=== PATIENT | male | born 1965 | race Caucasian/White ===

== ENCOUNTER → 2019-04-07 | Outpatient (CLI) | payer OTHER | LOC: RAD 09:55 | PROVIDERS: ATTEND Urology | DX: N20.1 Calculus of ureter (principal) ==

== ENCOUNTER → 2019-04-21 | Outpatient (CLI) | payer OTHER ==
[~2019-04-21] MED LIST: CLARITIN-D 241 EACH PO; CRESTOR10 MG PO; PEPCID20 MG PO
--- NOTE | 2019-04-21 12:04 | Diagnostic Imaging Report ---
CT of the abdomen and pelvis, without contrast. History: Renal colic, ureteral stone. Comparison: None available. Technique: Multidetector CT scanning of the abdomen and pelvis was performed from the level of the lung bases to the inferior pubic rami without the use of contrast material. Coronal and sagittal multiplanar reformations were obtained. RADIATION DOSE: Total DLP: 563.86 mGy*cm Dose modulation, iterative reconstruction, and/or weight based adjustment of the mA/kV was utilized to reduce the radiation dose to as low as reasonably achievable. FINDINGS: The visualized lungs are clear. The imaged portion of the heart demonstrates no significant abnormalities. The liver is normal in size and attenuation on this noncontrast enhanced examination. The gallbladder is unremarkable. There is no biliary ductal dilatation. The stomach, spleen, pancreas, and bilateral adrenal glands are unremarkable. The kidneys are normal in size and location. There is no evidence for nephrolithiasis. There is a 4-5 mm stone identified within the distal right ureter. There is no significant hydronephrosis or hydroureter present. The left ureter is normal course and caliber. The urinary bladder demonstrates no significant abnormalities. The prostate contains calcifications. The abdominal aorta is normal course and caliber with mild after cirrhotic calcifications. The IVC is normal in caliber. Please note evaluation the bowel is limited without the use of enteric contrast material. The visualized loops small large bowel demonstrate no evidence of obstruction or inflammation. The appendix is visualized and appears unremarkable. Scattered diverticula are noted within the sigmoid colon without evidence for acute diverticulitis. There is no ascites or intraperitoneal free air. No abnormally enlarged lymph nodes are identified within the abdomen or pelvis. There are small fat-containing bilateral inguinal hernias present. The osseous structures demonstrate no evidence for acute fracture or destructive process. The extraperitoneal soft tissues are unremarkable. IMPRESSION: 4-5 mm stone identified within the distal right ureter. No evidence for hydroureter or hydronephrosis. Signed by: Dr. Jose Samuels MD on 04/21/2019 12:02 PM
== END ==
LOC: CT 11:00
PROVIDERS: ATTEND Urology
DX: N13.2 Hydronephrosis with renal and ureteral calculous obstruction (principal)
CPT/HCPCS: 74176

== ENCOUNTER → 2019-04-23 | Day surgery (SDC) | payer OTHER ==
[2019-04-22 16:09] LABS: BASOPHILS % 0.5 % (0.0-1.0); EOSINOPHILS # (AUTO) 0.1 (0.0-0.4); EOSINOPHILS % 1.1 % (0.0-6.0); HEMATOCRIT 44.3 % (38.2-49.6); HEMOGLOBIN 14.5 g/dL (14.0-18.0); LYMPHOCYTES # (AUTO) 1.6 (1.0-3.2); LYMPHOCYTES % 24.1 % (18.0-39.1); MEAN CORPUSCULAR HEMOGLOBIN 30.5 pg (28-32); MEAN CORPUSCULAR HGB CONC 32.7 g/dL (31-35); MEAN CORPUSCULAR VOLUME 93.1 fL (81-99); MONOCYTES # (AUTO) 0.5 (0.2-0.8); MONOCYTES % 7.5 % (4.4-11.3); NEUTROPHILS # (AUTO) 4.3 (2.1-6.9); NEUTROPHILS % 66.6 % (38.7-80.0); PLATELET COUNT 231 x10e3/uL (140-360); RED BLOOD COUNT 4.76 x10e6/uL (4.3-5.7); RED CELL DISTRIBUTION WIDTH 12.5 % (11.7-14.4)
[2019-04-22 16:55] LABS: ALBUMIN 4.4 g/dL (3.5-5.0); ALBUMIN/GLOBULIN RATIO 1.5 (0.8-2.0); ANION GAP 11.1 mmol/L (8-16); CALCIUM 9.8 mg/dL (8.4-10.2); CREATININE, SERUM 1.24 mg/dL (0.72-1.25); POTASSIUM 4.1 mmol/L (3.5-5.1)
[~2019-04-23] MED LIST changes: +ACETAMINOPHEN 1000 MG/100 ML IV ONE; +B&O 60MG R/S 60 MG SUPP PR ONE; +CEFTRIAXONE SOD 1 GM/NS 50 ML 50 ML IV ONE; +DEXAMETHASONE SOD PHOS INJ 4 MG/ML VIAL ONE; +FENTANYL CITRATE/PF 100MCG/2 ML INJ ONE; +IOPAMIDOL 300MG/ML 50ML INFUS..BTL IV ONE; +IOPAMIDOL 610MG/1ML 300 MG/ML VIAL IV ONE; +KETOROLAC TROMETHAMINE 30 MG/ML VIAL ONE; +LIDOCAINE HCL 2% LOCAL INJ 5 ML SDV VIAL INJ ONE; +MIDAZOLAM HCL 2 MG/2 ML VIAL ONE; +ONDANSETRON HCL INJ 2MG/ML 2ML 2 MG/ML VIAL ONE; +PHENAZOPYRIDINE HCL 100 MG TAB PO ONE; +PROPOFOL IV EMULSION 10 MG/ML 20 ML VIAL ONE; +SEVOFLURANE INHAL SOLN 250 ML PEN BTL ONE
--- OUTSIDE RECORDS SUMMARY | 2019-04-23 05:33 | XMS REPORT ---
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 Allergies, Adverse Reactions, Alerts This patient has no known allergies or adverse reactions. Medications This patient has no known medications. Results Test Description Test Time Test Comments Text Results Atomic Results Result Comments CT ABDOMEN/PELVIS WO 2019-04-21 11:56:00 [place] [address] Patient Name: BABAR BOWEN MR #: [id number] : 1965 Age/Sex: 54/M Req #: [id number] Adm Physician: Ordered by: CAMILA LORENZO MD Report #: [id number] Location: CT Room/Bed: Procedure: [id number] CT/CT ABDOMEN/PELVIS WO Exam Date: 04/21/19 Exam Time: 1120 REPORT STATUS: Signed CT of the abdomen and pelvis, without contrast. History: Renal colic, ureteral stone. Comparison: None available. Technique: Multidetector CT scanning of the abdomen and pelvis was performed from the level of the lung bases to the inferior pubic rami without the use of contrast material. Coronal and sagittal multiplanar reformations were obtained. RADIATION DOSE: Total DLP: 563.86 mGy*cm Dose modulation, iterative reconstruction, and/or weight based adjustment of the mA/kV was utilized to reduce the radiation dose to as low as reasonably achievable. FINDINGS: The visualized lungs are clear. The imaged portion of the heart demonstrates no significant abnormalities. The liver is normal in size and attenuation on this noncontrast enhanced examination. The gallbladder is unremarkable. There is no biliary ductal dilatation. The stomach, spleen, pancreas, and bilateral adrenal glands are unremarkable. The kidneys are normal in size and location. There is no evidence for nephrolithiasis. There is a 4-5 mm stone identified within the distal right ureter. There is no significant hydronephrosis or hydroureter present. The left ureter is normal course and caliber. The urinary bladder demonstrates no significant abnormalities. The prostate contains calcifications. The abdominal aorta is normal course and caliber with mild after cirrhotic calcifications. The IVC is normal in caliber. Please note evaluation the bowel is limited without the use of enteric contrast material. The visualized loops small large bowel demonstrate no evidence of obstruction or inflammation . The appendix is visualized and appears unremarkable. Scattered diverticula are noted within the sigmoid colon without evidence for acute diverticulitis. There is no ascites or intraperitoneal free air. No abnormally enlarged lymph nodes are identified within the abdomen or pelvis. There are small fat- containing bilateral inguinal hernias present. The osseous structures demonstrate no evidence for acute fracture or destructive process. The extraperitoneal soft tissues are unremarkable. IMPRESSION: 4-5 mm stone identified within the distal right ureter. No evidence for hydroureter or hydronephrosis. Signed by: Dr. Jose Klein MD on 04/21/2019 12:02 PM Dictated By: JOSE KLEIN MD 1202 Transcribed By: CURRY on 04/21/19 1202 COPY TO: CAMILA LORENZO MD
[2019-04-23 09:00] VITALS: BP 132/79
--- NOTE | 2019-04-23 13:52 | Operative Report ---
DATE OF PROCEDURE: 04/23/2019 SURGEON: Kamlesh Tavera MD PREOPERATIVE DIAGNOSES: 1. Hydronephrosis. 2. Right ureterolithiasis. POSTOPERATIVE DIAGNOSES: 1. Hydronephrosis. 2. Right ureterolithiasis. 3. Wide caliber bulbar urethral stricture. 4. Distal right ureteral stricture. 5. Early benign prostatic hyperplasia .. OPERATIONS PERFORMED: 1. Cystourethroscopy with calibration and dilation of wide caliber bulbar urethral stricture (separate procedure performed for the diagnosis of stricture). 2. Cystourethroscopy with bilateral ureteral catheterization and retrograde ureteropyelography (separate procedure performed to evaluate the previously diagnosed hydronephrosis). 3. Interpretation of retrograde ureteropyelography. 4. Supervision of fluoroscopy, no radiologist present. 5. Right ureteroscopy with dilation of distal ureteral stricture (separate procedure performed for the diagnosis of stricture). 6. Right ureteroscopy with holmium laser lithotripsy, extraction of stone fragments and placement of right ureteral stent (separate procedure performed for the ureteral stone). 7. Radiological services for supervision and interpretation of ureteroscopy. ANESTHESIA: General. COMPLICATIONS: None. CLINICAL SUMMARY: Bobby Barry is a 54-year-old man without any previous urological history. The patient had severe right renal colic, presented to an outlying emergency room, where CT scanning revealed hydroureteronephrosis and a distal right ureteral stone. After several weeks of stone passage trial with failure, the patient has had mild persistent symptomatology. Followup CT revealed virtually no movement of the stone over several week. Therefore, the patient elected to proceed with surgery as planned. He is aware of the risks of bleeding, infection, injury to adjacent structures, the fact he will have a temporary indwelling ureteral stent that requires followup and removal. He understood all these risks and elected to proceed. OPERATIVE PROCEDURE IN DETAIL: Informed consent was verified. Bobby Barry was properly identified, taken to the operating room, and placed on the cystoscopy table in supine position. Anesthesia was uneventfully begun. The patient was then carefully and gently repositioned in dorsal lithotomy position with all pressure points well padded. His genitalia were prepared and draped in the usual sterile fashion. The 22.5-Ecuadorean cystoscope sheath with the visual obturator in place was atraumatically inserted into the patient's urethra. It was guided down to normal distal urethra to the bulbar region, where there was a wide caliber stricture that is probably not clinically significant. The stricture was calibrated to approximately 18-Ecuadorean in size and was gently dilated with the visual obturator in place and the sheath in place to 22.5-Ecuadorean in size. We then went through the normal sphincteric region and traversed through the prostate, was significant for early BPH with a slightly elevated median bar, but no median lobe. We entered the patient's bladder. Panendoscopy revealed mild trabeculations, but no tumors, no stones, no diverticula. No suspicious mucosal lesions were identified. An open-ended ureteral catheter was used to cannulate the left ureter and retrograde ureteropyelograms were performed. It was then inserted in the right ureter and retrograde ureteropyelograms were performed. A guidewire was then placed into the right ureter and guided to the level of the patient's kidney. A semi-rigid ureteroscope was then placed alongside the guidewire into the distal left ureter. We were able to pass it upward approximately 1 cm prior to encountering a narrowing of the ureter. We withdrew the ureteroscope and utilized a flexible ureteroscopy sheath to gently dilate this region. The ureteroscope sheath was removed and then the semi-rigid ureteroscope was then placed alongside the guidewire and guided easily into the patient's ureter. We identified the stone. The stone was initially grasped and oriented lengthwise, and attempt was then made to extract it, however, there was resistance so the stone was released. Holmium laser lithotripsy was then performed to fragment that stone into approximately half a dozen pieces. We then utilized the stone basket to extract all the stone fragments and dropped them into the patient's bladder. With cystoscope and fluoroscopic guidance, a right-sided indwelling ureteral stent was then placed to coil the patient's upper pole calyx as well as the patient's bladder. The retaining suture was cut short. The ureter exhibited erythema and signs of stone impaction with some degree of chronicity. Therefore, we plan on leaving the stent in place for several weeks to allow for recovery. The stone fragments in the bladder were removed and sent for chemical analysis. The patient's bladder was drained. The cystoscope was withdrawn. Belladonna and opium suppository were placed revealing a 30 g prostate that is smooth, non-fluctuant without any nodules. The patient was then uneventfully reversed from anesthesia and taken to recovery room in stable condition. There were no complications to the procedure. He tolerated the procedure well. Estimated blood loss was minimal. Explicit postop instructions were given. We will plan on returning the patient back to the operating room in several weeks to remove his stent, perform ureteroscopy and hopefully, render the patient stent-free and stone-free at that time. Following that, we will involve return to the operating room to remove the stent and perform ureteroscopy to ensure the ureter is healed and no residual stone fragments remain. Kamlesh MD Liang [place]/MODL /[id number] cc: Juan Gallego MD
== END | disposition home or self-care (01) ==
LOC: OR 05:28
PROVIDERS: ATTEND Urology
DX: N13.2 Hydronephrosis with renal and ureteral calculous obstruction (principal); N35.912 Unspecified bulbous urethral stricture, male; N13.5 Crossing vessel and stricture of ureter without hydronephrosis; N40.0 Benign prostatic hyperplasia without lower urinary tract symptoms; N32.89 Other specified disorders of bladder; K21.9 Gastro-esophageal reflux disease without esophagitis; E78.5 Hyperlipidemia, unspecified; I49.1 Atrial premature depolarization; I45.10 Unspecified right bundle-branch block; T78.40XA Allergy, unspecified, initial encounter; X58.XXXA Exposure to other specified factors, initial encounter; Z01.810 Encounter for preprocedural cardiovascular examination; Z01.812 Encounter for preprocedural laboratory examination
CPT/HCPCS: 36415; 52344; 52356; 74420; 80053; 83970; 84550; 85025; 88300; 93005; C1758; C1766; C1769; C2617; J0131; J0696; J1100; J1885; J2001; J2250; J2405; J2704; J3010; Q9967

== ENCOUNTER → 2019-05-15 | Day surgery (SDC) | payer OTHER ==
[~2019-05-15] MED LIST changes: -ACETAMINOPHEN 1000 MG/100 ML IV ONE; -IOPAMIDOL 610MG/1ML 300 MG/ML VIAL IV ONE
[2019-05-15 09:30] VITALS: BP 134/87
--- NOTE | 2019-05-17 22:31 | Operative Report ---
DATE OF PROCEDURE: 05/15/2019 SURGEON: Kamlesh Tavera MD PREOPERATIVE DIAGNOSES: 1. Right ureterolithiasis. 2. Right hydronephrosis due to stone. 3. Indwelling ureteral stent. POSTOPERATIVE DIAGNOSES: 1. Right ureterolithiasis. 2. Right hydronephrosis due to stone. 3. Indwelling ureteral stent. OPERATIONS PERFORMED: 1. Cystourethroscopy with complicated removal of right indwelling ureteral stent (separate procedure performed for the diagnosis of stent). 2. Right ureteroscopy (separate procedure to evaluate for any residual urolithiasis and ensure that the patient's ureter is healed from the trauma of the ureterolithiasis and right ureteral stricture dilation). 3. Radiological services with supervision and interpretation of ureteroscopy. 4. Interpretation of retrograde ureteropyelography. 5. Supervision of fluoroscopy, no radiologist present. ANESTHESIA: General. COMPLICATIONS: None. CLINICAL SUMMARY: Bobby Barry is a 54-year-old man, who had ureteral passes that was obstructing in addition to a ureteral stricture that was obstructing. He underwent stone manipulation, stricture dilation, stent placement. He is brought for the above procedures. He is aware of the risks of bleeding, infection, injury to adjacent structures, need for additional procedures, and elected to proceed. OPERATIVE PROCEDURE IN DETAIL: Informed consent was verified. Bobby Barry was properly identified, taken to the operating room, and placed on the cystoscopy table in supine position. Anesthesia was uneventfully begun. The patient was then carefully and gently repositioned in the dorsal lithotomy position with all pressure points were padded. His genitalia were prepared and draped in sterile fashion. The cystoscope sheath with the visual obturator in place was atraumatically inserted into the patient's urethra, it was guided down the unremarkable urethra. There was wide caliber scarring where the patient had a previous urethral stricture, but this was not clinically significant obstruction. We went into the patient's prostate bed, which was significant for early BPH with visual obstruction of the channel. We entered the patient's bladder, where panendoscopy revealed a stent emerging in the right ureteral orifice. There was some mild erythema of the mucosa around the stent and around the ureteral orifice. A guidewire was then placed alongside the stent and guided to the level of the patient's kidney. The stent was then grasped completely, removed and discarded. A semi-rigid ureteroscope was then placed alongside the guidewire and guided into the patient's right ureter. There were no stones. There were no tumors. There were no suspicious lesions in the distal ureter. Flexible ureteroscope was then brought up over the guidewire and guided to the level of the patient's kidney. Panendoscopy of the intrarenal collecting system revealed a few Jhonny's plaques, but there were no tumors, there were no stones, and there were no suspicious lesions. We performed careful panendoscopy of all the various parts of the intrarenal collecting system. We then carefully re-examined the ureter as we exited. It was free from stones, strictures, and lesions. Interpretation of retrograde ureteropyelography contrast was instilled in retrograde fashion via the ureteroscope. The calyces were sharp and delicate. There were no obvious filling defects. Unobstructed drainage was observed fluoroscopically. The patient's bladder was drained. Cystoscope was withdrawn. A belladonna and opium suppository were placed revealing a 30 g prostate, smooth and non-fluctuant without any nodules. The patient was then uneventfully reversed from anesthesia and taken to recovery room in stable condition. Plans will be to follow the patient up on a long-term basis to perform metabolic stone workup and hopefully avoid future stone recurrence. Kamlesh Tavera MD [place]/MODL /[id number]
== END | disposition home or self-care (01) ==
LOC: OR 06:00
PROVIDERS: ATTEND Urology
DX: N13.2 Hydronephrosis with renal and ureteral calculous obstruction (principal); Z46.6 Encounter for fitting and adjustment of urinary device; N40.1 Benign prostatic hyperplasia with lower urinary tract symptoms; N13.8 Other obstructive and reflux uropathy; N28.89 Other specified disorders of kidney and ureter
CPT/HCPCS: 52351; 74420; C1758; C1769; J0696; J1100; J1885; J2001; J2250; J2405; J2704; J3010; Q9967

== ENCOUNTER → 2020-02-08 | Outpatient (CLI) | payer OTHER ==
[~2020-02-08] MED LIST changes: -B&O 60MG R/S 60 MG SUPP PR ONE; -CEFTRIAXONE SOD 1 GM/NS 50 ML 50 ML IV ONE; +COVID-19 VACC, MRNA(MODERNA)/PF 100 MCG/0.5 ML VIAL IM ONE; -DEXAMETHASONE SOD PHOS INJ 4 MG/ML VIAL ONE; -FENTANYL CITRATE/PF 100MCG/2 ML INJ ONE; -IOPAMIDOL 300MG/ML 50ML INFUS..BTL IV ONE; -KETOROLAC TROMETHAMINE 30 MG/ML VIAL ONE; -LIDOCAINE HCL 2% LOCAL INJ 5 ML SDV VIAL INJ ONE; -MIDAZOLAM HCL 2 MG/2 ML VIAL ONE; -ONDANSETRON HCL INJ 2MG/ML 2ML 2 MG/ML VIAL ONE; -PHENAZOPYRIDINE HCL 100 MG TAB PO ONE; -PROPOFOL IV EMULSION 10 MG/ML 20 ML VIAL ONE; -SEVOFLURANE INHAL SOLN 250 ML PEN BTL ONE
== END ==
LOC: VACCPMC 12:05
DX: Z23 Encounter for immunization (principal); Z20.828 Contact with and (suspected) exposure to other viral communicable diseases

== ENCOUNTER → 2020-03-14 | Outpatient (CLI) | payer OTHER | LOC: VACCPMC 08:30 | DX: Z23 Encounter for immunization (principal); Z20.822 Contact with and (suspected) exposure to COVID-19 | CPT/HCPCS: 0012A; 91301 ==

== ENCOUNTER → 2021-04-07 | Outpatient (CLI) | payer SELFPAY ==
[~2021-04-07] MED LIST changes: -COVID-19 VACC, MRNA(MODERNA)/PF 100 MCG/0.5 ML VIAL IM ONE
== END ==
LOC: MRI 12:54
PROVIDERS: ATTEND Physician Assistant
DX: S83.242A Other tear of medial meniscus, current injury, left knee, initial encounter (principal)